=== PATIENT | female | born 1945 | race Caucasian/White ===

== ENCOUNTER 2023-11-18 21:26 | Inpatient (IN) ==
[2023-11-18 22:17] LABS: Basophils # (auto) 0.05 K/uL (0.00-0.20); Basophils % (auto) 0.6 %; Eosinophils # (auto) 0.31 K/uL (0.00-0.50); Eosinophils % (auto) 3.9 %; Hematocrit (blood only) 43.3 % (37.0-47.0); Hemoglobin 14.5 g/dl (12.0-16.0); Immature Granulocytes # (auto) 0.02 K/uL (0.01-0.20); Immature Granulocytes % (auto) 0.3 %; Lymphocytes # (auto) 1.93 K/uL (1.20-3.40); Lymphocytes % (auto) 24.3 %; Mean Corpuscular Hemoglobin 31.2 pg (25.0-34.0); Mean Corpuscular Hgb Conc 33.5 g/dL (32.0-36.0); Mean Corpuscular Volume 93.1 fL (80.0-100.0); Mean Platelet Volume 10.3 fL (9.4-12.4); Monocytes # (auto) 0.73 K/uL (0.11-0.59); Monocytes % (auto) 9.2 %; Neutrophils # (auto) 4.91 K/uL (1.40-6.50); Neutrophils % (auto) 61.7 %; Platelet Count 161 K/uL (130-400); RDW Coefficient of Variation 13.3 % (11.5-14.5); RDW Standard Deviation 45.2 fL (36.4-46.3); Red Blood Count 4.65 M/uL (4.20-5.40); White Blood Count 7.95 K/ul (4.8-10.8)
[2023-11-18 22:28] LABS: BUN Creatinine Ratio 20.7 (10-20); Calcium 8.9 mg/dl (8.6-10.3); Creatinine Clr Calc Pharmacy 53.7 ml/min; Potassium 3.7 mmol/L (3.5-5.1)
--- NOTE | 2023-11-18 22:39 | Emergency Department Note ---
Impression & Plan Closed right hip fracture ED Provider Note NAME: SIMA JJ AGE: 78 SEX: F : 1945 ARRIVES VIA: Ambulance INFORMANT: Patient, ED PROVIDER(S): Emily Mendoza MD CHIEF COMPLAINT: Hip pain after fall HPI: This is a 78-year-old female presenting for a fall and hip pain. Patient notes that she was in the bathtub. She was getting out and put 1 foot on the bathroom mat. When she attempted to twist her body this bathroom at slipped and she hit her right hip against the ground. She notes that immediately after the injury she is unable to walk on it due to pain. She takes no blood thinners, did not hit her head. Her only blood provide hurts is her current right hip. ROS: See above HPI for pertinent positives & negatives. A total of 10 systems reviewed and were otherwise negative. PHYSICAL EXAMINATION: General: resting comfortably in no acute distress Head: Normocephalic and atraumatic Eyes: Normal inspection, extraocular muscles intact Ear, nose, throat: Normal external exam Neck: Normal range of motion Respiratory: lungs clear to auscultation bilaterally Cardiovascular: Regular rate/rhythm, no murmur GI: soft, nontender, no guarding or rebound Extremities: Right hip tenderness to palpation, held in current flexion, 2+ pulses Neuro: The patient awake and alert, appropriately conversive, no focal deficits, symmetric faces Skin: Warm, dry, and intact MEDICAL DECISION MAKING: This is a 78-year-old female sent for hip pain after a fall. Suspect hip fracture based on patient's current clinical presentation. Otherwise low concern for acute pelvic fracture. Hip x-ray independent read by me shows a right trochanteric hip fracture, nondisplaced -Will get basic screening blood work, EKG and chest x-ray as patient will be admitted. -Blood reviewed without significant leukocytosis, anemia or electrolyte disturbances. -Chest x-ray as independently interpreted by me reveals cardiomegaly, no focal opacity, no pneumothorax -ECG independently interpreted by me with sinus bradycardia, rate of 59, normal axis, normal ND, incomplete right bundle branch block, normal QTc,i no ST segment elevations consistent with STEMI criteria Differential diagnosis: Hip fracture pelvic fracture contusion, muscle strain/sprain ER treatment provided: See below Diagnostics interpreted by me: ECG: See above Cardiac Monitoring: An order was placed for continuous cardiac monitoring. The monitor shows a rate of 59 with sinus rhythm. Laboratory studies:As stated above and show below.] Imaging studies: See below. 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 Beliefs That Will Affect Care: None Current Living Situation: Spouse Current Living Situation Comment: lives with in NH, home has stairs to entrance and in home Feels Safe at Home: Yes Assistive Devices: Bedside Commode and Walker Allergies Allergies Allergy/AdvReac Type Severity Reaction Status Date / Time bee venom protein (honey bee) Allergy Severe Hives Verified 11/18/23 23:17 Home Meds Home Medications Medication Instructions Recorded Confirmed levothyroxine 50 mcg tablet 50 mcg PO QAM 11/18/23 11/18/23 simvastatin 20 mg tablet 20 mg PO HS 11/18/23 11/18/23 Results & Data (ED) Vital Signs Vital Signs - 24 hr 11/18/23 21:38 11/18/23 21:41 11/18/23 21:41 Temperature 36.7 C 36.7 C Temperature Source Oral Oral Pulse Rate 66 64 Pulse Rate [Apical] 64 Respiratory Rate 16 16 Blood Pressure 159/114 H Blood Pressure [Right Arm] 159/114 H Blood Pressure Mean 129 Blood Pressure Mean [Right Arm] 129 Pulse Oximetry 99 98 Oxygen Delivery Method Room Air Room Air Sepsis Recent Fever Within 48 Hours No Sepsis New/Unexplained Change in Mental Status No Sepsis Action Taken by Nursing No Action Required Laboratory Data 11/20/23 07:29 11/20/23 07:29 Lab Results 11/18/23 Range/Units 21:37 WBC 7.95 (4.8-10.8) K/ul RBC 4.65 (4.20-5.40) M/uL Hgb 14.5 (12.0-16.0) g/dl Hct 43.3 (37.0-47.0) % MCV 93.1 (80.0-100.0) fL MCH 31.2 (25.0-34.0) pg MCHC 33.5 (32.0-36.0) g/dL RDW Std Deviation 45.2 (36.4-46.3) fL RDW Coeff of Erwin 13.3 (11.5-14.5) % Plt Count 161 (130-400) K/uL MPV 10.3 (9.4-12.4) fL Immature Gran % (Auto) 0.3 % Neut % (Auto) 61.7 % Lymph % (Auto) 24.3 % Mcdonough % (Auto) 9.2 % Eos % (Auto) 3.9 % Baso % (Auto) 0.6 % Neut # (Auto) 4.91 (1.40-6.50) K/uL Lymph # (Auto) 1.93 (1.20-3.40) K/uL Mcdonough # (Auto) 0.73 H (0.11-0.59) K/uL Eos # (Auto) 0.31 (0.00-0.50) K/uL Baso # (Auto) 0.05 (0.00-0.20) K/uL Immature Gran # (Auto) 0.02 (0.01-0.20) K/uL PT 10.3 (9.0-12.0) Seconds INR 0.9 (0.9-1.1) APTT 27 (21-31) Seconds PTT Ratio 1.0 Sodium 138 (136-145) mmol/L Potassium 3.7 (3.5-5.1) mmol/L Chloride 104 (98-107) mmol/L Carbon Dioxide 26 (21-32) mmol/L Anion Gap 8 (3-11) BUN 17 (6-23) mg/dl Creatinine 0.82 (0.6-1.2) mg/dl Est Cr Clr Drug Dosing 53.7 ml/min Est GFR ( Amer) 80.0 ml/min Est GFR (Non-Af Amer) 69.0 ml/min BUN/Creatinine Ratio 20.7 H (10-20) Glucose 144 H (70-99(Fasting)) mg/dl Calcium 8.9 (8.6-10.3) mg/dl Magnesium 2.0 (1.7-2.4) mg/dl Administered Medications Acetaminophen (Acetaminophen 325 Mg Tab) 650 mg PO Q4H PRN PRN Reason: Pain or Fever Stop: 12/20/23 09:11 Last Admin: 11/21/23 09:50 Dose: 650 mg Documented By: Admin: 11/21/23 04:53 Dose: 650 mg Documented By: Admin: 11/20/23 22:11 Dose: 650 mg Documented By: Admin: 11/20/23 14:04 Dose: 650 mg Documented By: Admin: 11/20/23 10:12 Dose: 650 mg Documented By: NIKO Apixaban (Apixaban 2.5 Mg Tab) 2.5 mg PO BID [facility] Stop: 01/01/24 08:59 Last Admin: 11/21/23 08:00 Dose: 2.5 mg Documented By: Admin: 11/20/23 20:37 Dose: 2.5 mg Documented By: Admin: 11/20/23 10:13 Dose: 2.5 mg Documented By: NIKO Levothyroxine Sodium (Levothyroxine Sodium 50 Mcg Tablet) 50 mcg PO DAILYBB [facility] Stop: 12/20/23 08:59 Last Admin: 11/21/23 04:54 Dose: 50 mcg Documented By: CAROLINE Ondansetron HCl (Ondansetron Inj 2 Mg/Ml 2 Ml Vial) 4 mg IV Q6H PRN PRN Reason: Nausea Stop: 12/19/23 01:14 Last Admin: 11/19/23 17:23 Dose: 4 mg Documented By: LESIA Simvastatin (Simvastatin 20 Mg Tab) 20 mg PO HS [facility] Stop: 12/19/23 20:59 Last Admin: 11/20/23 20:37 Dose: 20 mg Documented By: Admin: 11/19/23 20:30 Dose: 20 mg Documented By: CAROLINE Tramadol HCl (Tramadol Hcl 50 Mg Tablet) 50 mg PO Q4H PRN PRN Reason: MODERATE Pain Stop: 12/20/23 16:56 Last Admin: 11/21/23 01:40 Dose: 50 mg Documented By: Admin: 11/20/23 17:05 Dose: 50 mg Documented By: NIKO Discontinued Medications Aspirin (Aspirin 81 Mg Ectab) 81 mg PO QAM [facility] Stop: 12/20/23 08:59 Last Admin: 11/20/23 08:36 Dose: 81 mg Documented By: NIKO Bupivacaine HCl/Epinephrine Bitart (Bupivacaine/Epinephrine 0.25% 1:200,000 30 Ml Vial) Confirm Administered Dose 30 ml .ROUTE .STK-MED ONE Stop: 11/19/23 13:25 Last Admin: 11/19/23 15:45 Dose: 30 ml Documented By: BTR Hydromorphone HCl (Hydromorphone Inj 0.5 Mg/0.5 Ml Syr) 0.5 mg IV NOW STA Stop: 11/18/23 22:31 Last Admin: 11/18/23 22:48 Dose: 0.5 mg Documented By: CIERA Hydromorphone HCl (Hydromorphone Inj 0.5 Mg/0.5 Ml Syr) 0.5 mg IV Q3H PRN PRN Reason: Pain (6,7,8,9,10) Stop: 12/03/23 01:14 Last Admin: 11/19/23 07:49 Dose: 0.5 mg Documented By: JAIME Acetaminophen (Ofirmev) 1,000 mg in 100 mls @ 400 mls/hr IV Q8H PRN PRN Reason: Pain or Fever Stop: 11/21/23 23:39 Last Infusion: 11/20/23 05:02 Dose: Infused Documented By: Admin: 11/20/23 04:21 Dose: 400 mls/hr Documented By: Infusion: 11/19/23 20:10 Dose: Infused Documented By: Admin: 11/19/23 19:46 Dose: 400 mls/hr Documented By: Infusion: 11/19/23 10:57 Dose: Infused Documented By: Admin: 11/19/23 10:40 Dose: 400 mls/hr Documented By: Infusion: 11/19/23 01:53 Dose: Infused Documented By: Admin: 11/19/23 01:38 Dose: 400 mls/hr Documented By: CAROLINE Cefazolin Sodium (Ancef 2000mg) 2,000 mg in 15 mls @ 3.75 mls/min IV PREOP [facility]MI; Protocol Stop: 11/20/23 05:59 Last Admin: 11/19/23 14:34 Dose: 3.75 mls/min Documented By: CHARIS Lactated Ringer's (Lr) 1,000 mls @ 80 mls/hr IV .[id number] [facility]MI Stop: 12/19/23 01:14 Last Infusion: 11/20/23 09:25 Dose: Infused Documented By: Infusion: 11/20/23 05:02 Dose: 80 mls/hr Documented By: Infusion: 11/20/23 05:01 Dose: 0 mls/hr Documented By: Admin: 11/20/23 04:20 Dose: 80 mls/hr Documented By: Infusion: 11/20/23 04:20 Dose: Infused Documented By: Admin: 11/19/23 17:31 Dose: 80 mls/hr Documented By: Infusion: 11/19/23 17:31 Dose: Infused Documented By: Admin: 11/19/23 16:21 Dose: Not Given Documented By: Infusion: 11/19/23 12:48 Dose: 0 mls/hr Documented By: Admin: 11/19/23 01:35 Dose: 80 mls/hr Documented By: CAROLINE Pantoprazole Sodium 40 mg/ (Syringe) 10 mls @ 5 mls/min IV DAILY@1100 [facility] Stop: 12/19/23 10:59 Last Admin: 11/19/23 10:40 Dose: 5 mls/min Documented By: JAIME Tranexamic Acid (Tranexamic Acid / 0.7% Nacl) 1,000 mg in 100 mls @ 600 mls/hr IV ONE ONE Stop: 11/19/23 15:54 Last Infusion: 11/19/23 17:20 Dose: Infused Documented By: Admin: 11/19/23 15:15 Dose: 600 mls/hr Documented By: CHARIS Cefazolin Sodium (Ancef 2000mg) 2,000 mg in 15 mls @ 3.75 mls/min IV Q8H [facility]; Protocol Stop: 11/20/23 06:03 Last Admin: 11/20/23 05:45 Dose: 3.75 mls/min Documented By: Admin: 11/19/23 20:30 Dose: 3.75 mls/min Documented By: CAROLINE Sodium Chloride (Nss) 1,000 mls @ 999 mls/hr IV .Q1H1M ONE Stop: 11/20/23 15:49 Last Infusion: 11/20/23 16:55 Dose: Infused Documented By: Infusion: 11/20/23 16:21 Dose: Infused Documented By: Admin: 11/20/23 15:14 Dose: 999 mls/hr Documented By: NIKO Levothyroxine Sodium (Levothyroxine Sodium 50 Mcg Tablet) 50 mcg PO NOW ONE Stop: 11/20/23 09:01 Last Admin: 11/20/23 09:16 Dose: 50 mcg Documented By: NIKO Oxycodone HCl (Oxycodone Hcl Ir 5 Mg Tab (Immediate Release)) 5 mg PO Q4H PRN PRN Reason: Pain Stop: 12/03/23 17:21 Last Admin: 11/20/23 07:55 Dose: 5 mg Documented By: Admin: 11/20/23 02:24 Dose: 5 mg Documented By: Admin: 11/19/23 20:32 Dose: 5 mg Documented By: [facility] Discharge Plan Visit Data Chief Complaint: Hip Pain Stated Complaint: Fall, Hip Pain ED Provider: Emily Mendoza Discharge Problem: Closed right hip fracture Patient Disposition: Admitted As Inpatient Discharge Instructions Interventions: ED Discharge Assessment Last Done: 11/19/23 00:55
[2023-11-18] MEDS: HYDROmorphone INJ 0.5 MG/0.5 ML SYR IV STA (22:48)
--- NOTE | 2023-11-18 23:46 | History & Physical Report ---
Date of Service November 18, 2023 Assessment & Plan (1) Closed right hip fracture: (2) Hypothyroidism: (3) Incomplete right bundle branch block: (4) Hyperlipidemia: (5) History of repair of left hip joint: Plan Closed right hip fracture- N.p.o. Acetaminophen 1 g IV every 8 hours as needed for mild pain or fever Dilaudid 0.25 mg IV every 3 hours as needed for moderate pain Dilaudid 0.5 mg IV every 3 hours as needed for severe pain Zofran 4 mg IV every 6 hours as needed Pantoprazole 40 mg IV daily LR at 80 mL/h History of previous left hip repair 07/06 Patient lives out of state in [place], and was here for graduation ceremony Consult orthopedic surgery Incomplete right bundle branch block- EKG with sinus bradycardia at rate 59, with incomplete RBBB No personal history of CAD, and patient is very physically active Hyperglycemia- Glucose 144 on admission No history of diabetes Repeat laboratories in a.m., if still elevated at that time, will place on Accu- Cheks and SSI Hypothyroidism- Resume levothyroxine post procedure Hyperlipidemia- Resume simvastatin postprocedure History of Present Illness Chief Complaint: The patient presents to the emergency department after developing immediate righ t hip pain after stepping out of the bathtub, onto a floor mat which slid, and she landed on her right hip. She denies any other injury, in particular, did not hit her head. Primary Care Provider: LONG GASTELUM The patient is a 78-year-old female visiting for a graduation ceremony, with a past medical history including hypothyroidism, hypercholesterolemia and history of left hip surgery, who presents to the emergency department after a slip and fall on a bath mat, developing severe right hip pain, with x-ray revealing a closed right hip fracture. Allergies Allergy/AdvReac Type Severity Reaction Status Date / Time bee venom protein (honey bee) Allergy Severe Hives Verified 11/18/23 23:17 Home Medications Medication Instructions Recorded Confirmed Type levothyroxine 50 mcg tablet 50 mcg PO QAM 11/18/23 11/18/23 History simvastatin 20 mg tablet 20 mg PO HS 11/18/23 11/18/23 History Past Med/Surg History Medical History (Updated 11/18/23 @ 23:55 by Denny Pa MD) Family history of heart disease 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 Hyperlipidemia Hypothyroidism Surgical History (Updated 11/18/23 @ 23:54 by Denny Pa MD) History of D&C History of repair of left hip joint Social History Smoking Status: Unknown if ever smoked Feels Safe at Home: Yes Review of Systems Review of Systems: The patient denies chest pain, palpitations, shortness of breath, dyspnea on exertion, cough, lower extremity swelling, sore throat, fevers, chills, sweats, weight change, fatigue, nausea, vomiting, diarrhea , constipation, abdominal pain, pelvic pain, blood in urine or stool, dysuria, urinary frequency or urgency, lightheadedness, dizziness, headache, memory loss, loss of consciousness, rash, abnormal bruising or bleeding, focal or generalized weakness, numbness or tingling in arms or left leg, generalized arthralgias or myalgias, back or neck pain, or night sweats. The review of systems is otherwise negative other than for that already noted above, and at least 10 systems have been reviewed. Physical Exam Physical Exam: The patient is awake, alert and oriented 3, well developed and well nourished, normocephalic and atraumatic, lying in bed and in no acute distress. HEENT--PERRL, EOMI, mucous membranes and oropharynx normal Neck--supple. No JVD. No bruits. Thyroid normal, trachea midline, no adenopathy. Heart--normal S1 and S2. No murmurs, rubs or gallops. Lungs--clear bilaterally, no respiratory distress, no accessory muscle use. Abdomen--normal bowel sounds and soft. Nontender. Nondistended, no hernias or masses, no organomegaly. Extremities--no cyanosis or clubbing. No edema. There are good distal pulses b/l. Dermatologic--normal skin turgor, normal color, no abnormal lymph nodes, no rash. Neurologic--cranial nerves II through XII grossly intact. Rheumatologic--limited exam due to right hip pain Psychiatric--normal affect. Results & Data Results & Data Vital Signs (Past 12 Hours) Vital Signs Temp Pulse Pulse Resp BP BP Pulse Ox 11/18/23 23:33 64 16 164/85 H 92 11/18/23 21:41 36.7 C 64 16 159/114 H 98 11/18/23 21:41 36.7 C 64 16 159/114 H 99 11/18/23 21:38 66 O2 Del Method 11/18/23 23:33 11/18/23 21:41 Room Air 11/18/23 21:41 Room Air 11/18/23 21:38 Laboratory Results Laboratory Results WBC 7.95 K/ul (4.8-10.8) 11/18/23 21:37 RBC 4.65 M/uL (4.20-5.40) 11/18/23 21:37 Hgb 14.5 g/dl (12.0-16.0) 11/18/23 21:37 Hct 43.3 % (37.0-47.0) 11/18/23 21:37 MCV 93.1 fL (80.0-100.0) 11/18/23 21:37 MCH 31.2 pg (25.0-34.0) 11/18/23 21:37 MCHC 33.5 g/dL (32.0-36.0) 11/18/23 21:37 RDW Std Deviation 45.2 fL (36.4-46.3) 11/18/23 21:37 RDW Coeff of Erwin 13.3 % (11.5-14.5) 11/18/23 21:37 Plt Count 161 K/uL (130-400) 11/18/23 21:37 MPV 10.3 fL (9.4-12.4) 11/18/23 21:37 Immature Gran % (Auto) 0.3 % 11/18/23 21:37 Neut % (Auto) 61.7 % 11/18/23 21:37 Lymph % (Auto) 24.3 % 11/18/23 21:37 Monona % (Auto) 9.2 % 11/18/23 21:37 Eos % (Auto) 3.9 % 11/18/23 21:37 Baso % (Auto) 0.6 % 11/18/23 21:37 Neut # (Auto) 4.91 K/uL (1.40-6.50) 11/18/23 21:37 Lymph # (Auto) 1.93 K/uL (1.20-3.40) 11/18/23 21:37 Monona # (Auto) 0.73 K/uL (0.11-0.59) H 11/18/23 21:37 Eos # (Auto) 0.31 K/uL (0.00-0.50) 11/18/23 21:37 Baso # (Auto) 0.05 K/uL (0.00-0.20) 11/18/23 21:37 Immature Gran # (Auto) 0.02 K/uL (0.01-0.20) 11/18/23 21:37 Sodium 138 mmol/L (136-145) 11/18/23 21:37 Potassium 3.7 mmol/L (3.5-5.1) 11/18/23 21:37 Chloride 104 mmol/L (98-107) 11/18/23 21:37 Carbon Dioxide 26 mmol/L (21-32) 11/18/23 21:37 Anion Gap 8 (3-11) 11/18/23 21:37 BUN 17 mg/dl (6-23) 11/18/23 21:37 Creatinine 0.82 mg/dl (0.6-1.2) 11/18/23 21:37 Est Cr Clr Drug Dosing 53.7 ml/min 11/18/23 21:37 Est GFR ( Amer) 80.0 ml/min 11/18/23 21:37 Est GFR (Non-Af Amer) 69.0 ml/min 11/18/23 21:37 BUN/Creatinine Ratio 20.7 (10-20) H 11/18/23 21:37 Glucose 144 mg/dl (70-99(Fasting)) H 11/18/23 21:37 Calcium 8.9 mg/dl (8.6-10.3) 11/18/23 21:37 Code Status & VTE Plan Code Status Full code VTE Prophylaxis Plan VTE Prophylaxis will be ordered: Yes PG Care Time/CCT Total # of Minutes Spent Total Time Spent with Patient: Total time spent is greater than 50% in coordination of care (as documented) at patient's floor/unit and/or counseling patient: Coding Level of Care Code 51659 INT INP/OBS CARE 3/75MIN Diagnoses Closed right hip fracture S72.001A Hypothyroidism E03.9 Incomplete right bundle branch block I45.10 Hyperlipidemia E78.5 History of repair of left hip joint Z98.890
[2023-11-18 23:59] LABS: INR 0.9 (0.9-1.1); Partial Thromboplastin Time 27 Seconds (21-31); Prothrombin Time 10.3 Seconds (9.0-12.0)
[2023-11-19] MEDS ORDERED: NALOXONE HCL 0.4 MG/1 ML VIAL/CARP IV PRN (01:15)
[2023-11-19] MEDS ORDERED: bisacodyL 10 MG SUPP PR PRN (01:15)
[2023-11-19] MEDS ORDERED: HYDROmorphone INJ 0.5 MG/0.5 ML SYR IV PRN (01:15)
[2023-11-19] MEDS ORDERED: MAGNESIUM HYDROXIDE SUSP 30 ML UDC PO PRN (01:15)
[2023-11-19] MEDS: LACTATED RINGER'S 1,000 ML IV SCH (01:35)
[2023-11-19] MEDS: ACETAMINOPHEN 1,000 MG/100 ML VIAL IV PRN (01:38)
--- NOTE | 2023-11-19 06:36 | Orthopedic Consultation ---
Date of Service November 19, 2023 Assessment & Plan (1) Closed right hip fracture: I discussed with her the diagnosis and treatment options. I am recommending intramedullary nail fixation of the right hip. She understands the risk, benefits, alternatives to the procedures elected to proceed. Questions were answered at bedside. Time was spent scribing the procedure and postop expectations. The decision was made for surgery. She is currently NPO. We plan to do the procedure later today. History of Present Illness Reason for Consultation: Nondisplaced right intertrochanteric hip fracture. Requesting Physician: . Attending Physician: Denny Pa MD Surekha is a pleasant 78-year-old female who is from the [facility]. She is a community ambulator without assistance. She was in town for a graduation. Unfortunately she slipped on a bath mat coming out of the bathtub. She injured her right hip. She came to the emergency room and radiographs demonstrated a minimally displaced right intertrochanteric hip fracture. Orthopedics was consulted to evaluate and treat.. Allergies Allergy/AdvReac Type Severity Reaction Status Date / Time bee venom protein (honey bee) Allergy Severe Hives Verified 11/18/23 23:17 Home Medications Medication Instructions Recorded Confirmed Type levothyroxine 50 mcg tablet 50 mcg PO QAM 11/18/23 11/18/23 History simvastatin 20 mg tablet 20 mg PO HS 11/18/23 11/18/23 History Past Med/Surg History Medical History Family history of heart disease 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 Hyperlipidemia Hypothyroidism Surgical History History of D&C History of repair of left hip joint Social History Smoking Status: Former smoker Hx Alcohol Use: No Hx Substance Use: Yes Last Used Substance: Hours (ago) Last Used Substance Oth er:: last night Preferred Language: Kittitian Communication Ability: Effective Land Measurer Required: No Beliefs That Will Affect Care: None Current Living Situation: Spouse Current Living Situation Comment: lives with in [place], home has stairs to entrance and in home Feels Safe at Home: Yes Assistive Devices: Glasses Review of Systems All systems reviewed & are unremarkable except as noted in HPI & below. Physical Exam On physical examination the right hip, her right leg is externally rotated. She has pain with logroll of her right hip.. Constitutional WD/WN, vitals as above Eyes PERRL, conjunctivae normal, anicteric sclerae ENMT external ear and nose normal, oropharynx normal Neck trachea midline, no thyromegaly Respiratory normal respiratory effort Cardiovascular RRR, no murmur, no edema Gastrointestinal (Abdomen) normal bowel sounds, soft, nontender, no hepatosplenomegaly Psychiatric A+Ox3, euthymic affect Results & Data Results & Data Laboratory Results . Diagnostic Findings X-rays of the right hip do show a minimally displaced right intertrochanteric hip fracture.. PG Care Time/CCT Total # of Minutes Spent Total Time Spent with Patient: Total time spent is greater than 50% in coordination of care (as documented) at patient's floor/unit and/or counseling patient: Coding Level of Care Code 39513 IN/OBS CONSULT LVL 4,60M (57 - DECISION FOR SURGERY) Diagnoses Closed right hip fracture S72.001A
[2023-11-19 07:25] LABS: Albumin Level 3.7 gm/dl (3.4-5.0); BUN Creatinine Ratio 21.4 (10-20); Calcium 8.5 mg/dl (8.6-10.3); Est GFR (African American) 96.9 ml/min; Est GFR (Non-African American) 83.6 ml/min; Phosphorus 4.2 mg/dl (2.5-4.9); Potassium 3.9 mmol/L (3.5-5.1)
--- NOTE | 2023-11-19 07:37 | XRay Report ---
XR chest 1V portable HISTORY: Right hip fracture. Preop. COMPARISON: None. FINDINGS: No pneumothorax. No pleural effusions. The cardiac silhouette is mildly enlarged. There is mild diffuse interstitial thickening. This could be chronic or represent mild congestive change. No f ocal lung consolidations to suggest a pneumonia. IMPRESSION: Cardiomegaly with mild diffuse interstitial thickening. This could be chronic or represent mild conge stive change. ACT 112: Negative or not required by law. Electronically signed by: Maurizio Garcia M.D. 11/19/2023 7:36 AM
--- NOTE | 2023-11-19 07:37 | XRay Report ---
XR hip RT 2V w pelvis CLINICAL HISTORY: Hip injury COMPARISON STUDY: None. FINDINGS: Nondisplaced intertrochanteric fracture within the proximal right femur. No dislocation. Th e visualized pelvic bones are intact. Doppler changes within the proximal left femur status post inte rnal fixation. The hardware appears intact. IMPRESSION: Nondisplaced intertrochanteric fracture within the proximal right femur. ACT 112: Negative or not required by law. Electronically signed by: Maurizio Garcia M.D. 11/19/2023 7:35 AM
[2023-11-19 07:39] LABS: Basophils # (auto) 0.05 K/uL (0.00-0.20); Basophils % (auto) 0.5 %; Eosinophils # (auto) 0.13 K/uL (0.00-0.50); Eosinophils % (auto) 1.3 %; Hematocrit (blood only) 40.6 % (37.0-47.0); Hemoglobin 13.5 g/dl (12.0-16.0); Immature Granulocytes # (auto) 0.05 K/uL (0.01-0.20); Immature Granulocytes % (auto) 0.5 %; Lymphocytes # (auto) 1.52 K/uL (1.20-3.40); Lymphocytes % (auto) 15.6 %; Mean Corpuscular Hemoglobin 31.2 pg (25.0-34.0); Mean Corpuscular Hgb Conc 33.3 g/dL (32.0-36.0); Mean Corpuscular Volume 93.8 fL (80.0-100.0); Mean Platelet Volume 10.4 fL (9.4-12.4); Monocytes # (auto) 1.08 K/uL (0.11-0.59); Monocytes % (auto) 11.1 %; Neutrophils # (auto) 6.92 K/uL (1.40-6.50); Platelet Count 149 K/uL (130-400); RDW Coefficient of Variation 13.3 % (11.5-14.5); Red Blood Count 4.33 M/uL (4.20-5.40); White Blood Count 9.75 K/ul (4.8-10.8)
[2023-11-19] MEDS: HYDROmorphone INJ 0.5 MG/0.5 ML SYR IV PRN (07:49)
--- NOTE | 2023-11-19 10:21 | Hospitalist Progress Note ---
Date of Service November 19, 2023 Assessment & Plan (1) Closed right hip fracture: Plan: Patient lives out of state in [place], and was here for graduation ceremony, and slipped getting out the shower. Hx of left hip fracture 1.5 years ago after mechanical fall. LR at 80 ml/hr while NPO Pantoprazole 40mg IV daily Consult orthopedic surgery - Plan for OR today, 5/6 Pain control - IV tylenol and Dilaudid (2) Hypothyroidism: Plan: Continue Synthroid (3) Hyperlipidemia: Plan: Continue statin (4) History of repair of left hip joint: Plan Dispo: continued inpatient stay, OR today DVT proh: SCDs preoperatively Family updated at bedside Admission and Anticipated Discharge Date Admission Date: November 18, 2023 Subjective Patient resting in bed, present at bedside. Mechanical fall, no prodromal symptoms. Pain well controlled while not moving. Currently NPO, plan for OR today. Able to walk a block or flight of stairs without issue. Denies hx of cardiac problems Review of Systems Review of Systems: All systems reviewed & are unremarkable except as noted in Subjective Physical Exam Physical Exam: General: NAD, VS as above Resp: normal respiratory effort, lungs clear to auscultation CV: RRR, no murmur, Abd: non tender, no hepatosplenomegaly Extremities: able to wiggle toes, bilaterally Neuro: A&O x3, Results & Data Results & Data Vital Signs (Past 12 Hours) Vital Signs Temp Pulse Pulse Resp BP BP Pulse Ox 11/19/23 07:13 36.5 C 64 16 136/83 96 11/19/23 05:43 36.7 C 72 12 112/67 98 11/19/23 01:18 36.6 C 65 14 142/88 H 98 11/19/23 00:55 57 L 18 142/79 H 100 11/18/23 23:33 64 16 164/85 H 92 O2 Del Method 11/19/23 07:13 Room Air 11/19/23 05:43 Room Air 11/19/23 01:18 Room Air 11/19/23 00:55 Room Air 11/18/23 23:33 Laboratory Results CBC and chemistry reviewed PG Care Time/CCT Total # of Minutes Spent Total Time Spent with Patient: Total time spent is greater than 50% in coordination of care (as documented) at patient's floor/unit and/or counseling patient: Coding Level of Care Code 63259 SUB INP/OBS CARE MIN Diagnoses Closed right hip fracture S72.001A Hypothyroidism E03.9 Hyperlipidemia E78.5 History of repair of left hip joint Z98.890
[2023-11-19] MEDS: PANTOprazole 40 MG in SYRINGE 0 ML IV SCH (10:40)
--- NOTE | 2023-11-19 12:56 | History & Physical Bridge Note ---
Date of Service November 19, 2023 History & Physical Bridge Note I have examined the patient, reviewed the History & Physical and in the interval since the performance of the History & Physical I have noted the following changes of clinical significance: no changes noted
[2023-11-19] MEDS ORDERED: ATROPINE SULFATE 0.1 MG/ML 10ML SYR IV PRN (13:31)
[2023-11-19] MEDS ORDERED: ePHEDrine sulfate 50 MG/ML AMP IV PRN (13:31)
[2023-11-19] MEDS ORDERED: fentaNYL citrate PF 100 MCG/2 ML VIAL IV PRN (13:31)
[2023-11-19] MEDS ORDERED: ONDANSETRON INJ 2 MG/ML 2 ML VIAL IV PRN (13:31)
--- NOTE | 2023-11-19 13:32 | Anesthesiology Consultation ---
Date of Service November 19, 2023 Assessment & Plan (1) Encounter for pre-operative examination: Chart Review Chart Review: Acceptable Risk for Surgery and Patient NOT seen in Pre Admission Testing Consults Requested none History Surgery Operation Date: 11/19/23 07:00 Proposed Procedures p Right Short IM Nail - Misha Saavedra DO Height/Weight Height: 5 ft 3 in Weight: 67.222 kg Allergies Allergy/AdvReac Type Severity Reaction Status Date / Time bee venom protein (honey bee) Allergy Severe Hives Verified 11/18/23 23:17 Medications Home Medications Medication Instructions Recorded Confirmed Last Taken levothyroxine 50 mcg tablet 50 mcg PO QAM 11/18/23 11/18/23 11/18/23 simvastatin 20 mg tablet 20 mg PO HS 11/18/23 11/18/23 11/17/23 Active Medications Generic Name Dose Route Start Last Admin Trade Name Freq PRN Reason Stop Dose Admin Hydromorphone HCl 0.5 mg 11/19/23 01:15 11/19/23 07:49 Hydromorphone Inj 0.5 Mg/0.5 Ml Syr IV 12/03/23 01:14 0.5 mg Q3H PRN Administration Pain (6,7,8,9,10) Acetaminophen 1,000 mg in 100 mls @ 400 mls/hr 11/18/23 23:40 11/19/23 10:57 Ofirmev IV 11/21/23 23:39 Infused Q8H PRN Infusion Pain or Fever Lactated Ringer's 1,000 mls @ 80 mls/hr 11/19/23 01:15 11/19/23 01:35 Lr IV 12/19/23 01:14 80 mls/hr .[id number] SAMMI Administration Pantoprazole Sodium 40 mg/ 10 mls @ 5 mls/min 11/19/23 11:00 11/19/23 10:40 Syringe IV 12/19/23 10:59 5 mls/min DAILY@1100 SAMMI Administration NPO Date Last Intake of Fluids: 11/18/23 Time Last Intake of Fluids: 21:00 Date Last Intake of Solids: 11/18/23 Time Last Intake of Solids: 20:00 Past Medical History Medical History (Updated 11/19/23 @ 13:33 by Joni Garcia MD) Encounter for pre-operative examination Family history of heart disease 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 Hyperlipidemia Hypothyroidism Past Surgical History Surgical History History of D&C History of repair of left hip joint Social History Smoking Status: Former smoker Hx Alcohol Use: No Hx Substance Use: Yes substance use type: marijuana Last Used Substance: Hours (ago) Last Used Substance Other:: last night Physical Exam Vital Signs Last Vital Signs Temp 36.9 C 11/19/23 12:51 Pulse 70 11/19/23 12:51 Resp 20 11/19/23 12:51 BP 130/82 11/19/23 12:51 Pulse Ox 97 11/19/23 12:51 O2 Del Method Room Air 11/19/23 12:51 Testing Laboratory Results 11/19/23 06:41 11/19/23 06:41 PT 10.3 Seconds (9.0-12.0) 11/18/23 21:37 INR 0.9 (0.9-1.1) 11/18/23 21:37 APTT 27 Seconds (21-31) 11/18/23 21:37 Electrocardiogram Date: 11/18/23 Sinus bradycardia Incomplete right bundle branch block Borderline ECG No previous ECGs available. HR 59. Chest X-Ray Date: 11/18/23 XR chest 1V portable HISTORY: Right hip fracture. Preop. COMPARISON: None. FINDINGS: No pneumothorax. No pleural effusions. The cardiac silhouette is mildly enlarged. There is mild diffuse interstitial thickening. This could be chronic or represent mild congestive change. No focal lung consolidations to suggest a pneumonia. IMPRESSION: Cardiomegaly with mild diffuse interstitial thickening. This could be chronic or represent mild congestive change.
[2023-11-19] MEDS ORDERED: LIDOCAINE 2% 2 ML VIAL/AMP(20MG/ML) INFIL ONE (13:33)
[2023-11-19] MEDS ORDERED: MIDAZOLAM HCL 1 MG/ML 2ML VIAL ONE ×2 (13:33→13:34)
[2023-11-19] MEDS ORDERED: PROPOFOL IV EMULSION 10 MG/ML 20 ML VIAL IV ONE (13:33)
[2023-11-19] MEDS ORDERED: fentaNYL citrate PF 100 MCG/2 ML VIAL ONE (13:34)
[2023-11-19] MEDS ORDERED: BUPIVACAINE 0.5 % 5 MG/1 ML PF 10ML VIAL ONE (13:50)
[2023-11-19] MEDS: ceFAZolin 2000MG 2,000 MG/15 ML SYR IV SCH ×2 (14:34→20:30)
[2023-11-19] MEDS ORDERED: TRANEXAMIC ACID / 0.7% NACL 1000MG/100ML BAG IV ONE (15:13)
[2023-11-19] MEDS: TRANEXAMIC ACID / 0.7% NACL 1,000 MG/100 ML BAG IV ONE (15:15)
--- NOTE | 2023-11-19 15:21 | Electrocardiogram Report ---
Test Reason : Blood Pressure : / mmHG Vent. Rate : 059 BPM Atrial Rate : 059 BPM P-R Int : 116 ms QRS Dur : 092 ms QT Int : 406 ms P-R-T Axes : 054 065 056 degrees QTc Int : 401 ms Sinus bradycardia Incomplete right bundle branch block Borderline ECG No previous ECGs available Confirmed by Yobany Richardson ([id number]) on 11/19/2023 3:21:28 PM Referred By: REFERRED SELF Confirmed By:Yobany Richardson
[2023-11-19] MEDS: BUPIVACAINE/EPINEPHRINE 0.25% 1:200,000 30 ML VIAL ONE (15:45)
--- NOTE | 2023-11-19 15:52 | Operative Report ---
PG Post Operative Report Pre & Post Diagnosis Operation Date: 11/19/23 07:00 Pre-Op Diagnosis: Closed intertrochanteric right hip fracture Post-Op Diagnosis: Closed intertrochanteric right hip fracture I identified the patient and participated in the time-out.: Yes Procedure Operation Date: 11/19/23 07:00 Actual Procedures p Right Short Intramedullary Nail(Right) - Misha Saavedra DO Surgeon Misha Saavedra DO Clinic Director Misha Obrien PA-C Estimated Blood Loss 50 Findings Consistent with Post-Op Diagnosis Specimens None Description of Procedure On November 19, 2023 Surekha was brought down from her hospital room to the preoperative holding area. The operative extremity identified and signed. She was given a preoperative antibiotic. She was taken back to the operating room and given a spinal anesthetic. She was then transferred to the fracture table. The right leg was brought out to traction. Fluoroscopy was used to ensure anatomic reduction of the hip. The right hip was then prepped and draped in sterile fashion. A timeout was done. The patient and the operative extremity was properly identified. A longitudinal incision was made just superior to the greater trochanter. Dissection was taken down through the fascia. A guidepin was placed at the tip of the greater trochanter and advanced down the center of the femoral canal. Appropriate placement was checked on fluoroscopy. A 16 mm opening reamer was then used to open the canal. A Synthes 11 mm short TFN nail was then impacted into place. Appropriate placement was checked on fluoroscopy. A small lateral incision was made and a cannula was advanced to the lateral cortex. A guidepin was then placed into the center center position of the femoral head. The helical blade measured to be 80 mm. The lateral cortex was drilled. An 80 mm helical blade was then impacted into place. The plate was then statically locked. A single distal locking screw was then placed. Final fluoroscopic images showed anatomic alignment of the hardware and complete reduction of the fracture. The wounds were then irrigated. The deep fascia was closed with #1 Vicryl. Deep tissue was closed with 2-0 Vicryl skin was closed with 3-0 Vicryl and teresa. She was then placed in a soft dressing. She was then transferred to a hospital bed and taken to the postanesthesia care unit in stable condition. She tolerated the procedure well. Misha Obrien PA-C, was present for the entire procedure. He was critical for patient positioning, prepping, draping, retraction exposure, wound closure and application of sterile dressing. I attest to the content of the Intraoperative Record and any orders documented therein. Any exceptions are noted below.
--- NOTE | 2023-11-19 15:56 | Fluoroscopy Report ---
FL hip RT 2-3V CLINICAL HISTORY: RIGHT IM NAIL COMPARISON STUDY: None. FLUOROSCOPY TIME: 45 seconds FLUOROSCOPY IMAGES: 4 Ka,r: 8.2 mGy FINDINGS: Internal fixation of the proximal right femoral fracture with a proximal intramedullary stewart and interlocking femoral neck pin. The hardware appears intact. Alignment is near-anatomic. IMPRESSION: Fluoroscopic assistance as above. ACT 112: Negative or not required by law. Electronically signed by: Maurizio Garcia M.D. 11/19/2023 3:55 PM
[2023-11-19] MEDS ORDERED: PHENYLEPHRINE HCL 10 MG/ML VIAL ONE (16:05)
--- NOTE | 2023-11-19 16:32 | Anesthesiology Progress Note ---
Date of Service November 19, 2023 Anesthesia Post Procedure Vital Signs Vital Signs: Temp Pulse Pulse Pulse Resp BP BP 11/19/23 16:25 57 L 13 121/61 11/19/23 16:15 59 L 16 113/59 L 11/19/23 16:05 63 12 110/62 11/19/23 15:56 36.2 C L 66 11 L 102/59 L 11/19/23 12:51 36.9 C 70 20 130/82 11/19/23 07:13 36.5 C 64 16 136/83 11/19/23 05:43 36.7 C 72 12 112/67 11/19/23 01:18 36.6 C 65 14 142/88 H 11/19/23 00:55 57 L 18 142/79 H 11/18/23 23:33 64 16 164/85 H 11/18/23 21:41 36.7 C 64 16 159/114 H 11/18/23 21:41 36.7 C 64 16 159/114 H 11/18/23 21:38 66 Pulse Ox O2 Del Method 11/19/23 16:25 96 Room Air 11/19/23 16:15 94 Room Air 11/19/23 16:05 97 Room Air 11/19/23 15:56 98 Room Air 11/19/23 12:51 97 Room Air 11/19/23 07:13 96 Room Air 11/19/23 05:43 98 Room Air 11/19/23 01:18 98 Room Air 11/19/23 00:55 100 Room Air 11/18/23 23:33 92 11/18/23 21:41 98 Room Air 11/18/23 21:41 99 Room Air 11/18/23 21:38 Pain Intensity Right Hip: Pain Intensity: 2 Transfer of Care Handoff Completed per policy Notes Mental Status: alert / awake / arousable and participated in evaluation Patient Amnestic to Procedure: Yes Nausea / Vomiting: adequately controlled Pain: adequately controlled Airway Patency, RR, SpO2: stable & adequate BP & HR: stable & adequate Hydration State: stable & adequate Neuraxial Anesthesia: was administered and sensory block is resolving Anesthetic Complications: no major complications apparent and Pt Satisfied with anesthetic care
[2023-11-19] MEDS: ONDANSETRON INJ 2 MG/ML 2 ML VIAL IV PRN (17:23)
[2023-11-19] MEDS: SIMVASTATIN 20 MG TAB PO SCH (20:30)
[2023-11-19] MEDS: oxyCODONE HCL IR 5 MG TAB (IMMEDIATE RELEASE) PO PRN (20:32)
--- NOTE | 2023-11-20 06:59 | Orthopedic Progress Note ---
Date of Service November 20, 2023 Assessment & Plan (1) Closed right hip fracture: Overall she is doing as well as expected. She can be weightbearing as tolerated on the right hip. She will be seen by physical therapy today for ambulation and range of motion exercises. I recommend DVT prophylaxis with Eliquis 2.5 mg twice a day for 6 weeks. She is interested in returning to [place] for rehab on the right hip. She is orthopedically stable for discharge when medically ready. Full orthopedic discharge instructions were placed in the discharge summary. If you have any further questions please feel free to contact me or call me personally on my cell phone [phone]. Amy Irby was seen and examined at bedside this morning. Overall she is doing very well. She is not having much pain in the right hip. She has not been up and ambulating yet. She has no complaints.. Review of Systems All systems reviewed & are unremarkable except as noted in HPI & below. Physical Exam On physical examination the right hip, the dressing is clean and dry. She has active dorsiflexion plantarflexion of her right ankle.. Results & Data Results & Data Laboratory Results . Diagnostic Findings . PG Care Time/CCT Total # of Minutes Spent Total Time Spent with Patient: Total time spent is greater than 50% in coordination of care (as documented) at patient's floor/unit and/or counseling patient: Coding Level of Care Code 68295 Post Operative Follow-Up Diagnoses Closed right hip fracture S72.001A
[2023-11-20 08:21] LABS: Basophils # (auto) 0.04 K/uL (0.00-0.20); Basophils % (auto) 0.4 %; Eosinophils # (auto) 0.11 K/uL (0.00-0.50); Eosinophils % (auto) 1.1 %; Hematocrit (blood only) 37.8 % (37.0-47.0); Hemoglobin 12.9 g/dl (12.0-16.0); Immature Granulocytes # (auto) 0.17 K/uL (0.01-0.20); Immature Granulocytes % (auto) 1.7 %; Lymphocytes # (auto) 1.27 K/uL (1.20-3.40); Lymphocytes % (auto) 12.9 %; Mean Corpuscular Hemoglobin 31.5 pg (25.0-34.0); Mean Corpuscular Hgb Conc 34.1 g/dL (32.0-36.0); Mean Corpuscular Volume 92.4 fL (80.0-100.0); Mean Platelet Volume 10.7 fL (9.4-12.4); Monocytes # (auto) 1.07 K/uL (0.11-0.59); Monocytes % (auto) 10.9 %; Neutrophils # (auto) 7.16 K/uL (1.40-6.50); Platelet Count 142 K/uL (130-400); RDW Coefficient of Variation 13.3 % (11.5-14.5); RDW Standard Deviation 45.6 fL (36.4-46.3); Red Blood Count 4.09 M/uL (4.20-5.40); White Blood Count 9.82 K/ul (4.8-10.8)
[2023-11-20 08:36] LABS: BUN Creatinine Ratio 10.5 (10-20); Calcium 8.2 mg/dl (8.6-10.3); Creatinine Clr Calc Pharmacy 57.1 ml/min; Est GFR (African American) 87.7 ml/min; Est GFR (Non-African American) 75.7 ml/min
[2023-11-20] MEDS: ASPIRIN 81 MG ECTAB PO SCH (08:36)
[2023-11-20] MEDS ORDERED: LEVOTHYROXINE SODIUM 50 MCG TABLET PO SCH (09:00)
[2023-11-20] MEDS: LEVOTHYROXINE SODIUM 50 MCG TABLET PO SCH (09:15)
[2023-11-20] MEDS: LEVOTHYROXINE SODIUM 50 MCG TABLET PO ONE (09:16)
[2023-11-20] MEDS: ACETAMINOPHEN 325 MG TAB PO PRN (10:12)
[2023-11-20] MEDS: APIXABAN 2.5 MG TAB PO SCH (10:13)
[2023-11-20] MEDS: SODIUM CHLORIDE 0.9% 1,000 ML IV ONE (15:14)
--- NOTE | 2023-11-20 15:47 | XRay Report ---
XR hip RT min 2V CLINICAL HISTORY: Post-Operative implant position TECHNIQUE: 2 views of the right hip and single frontal view of the pelvis were obtained. Comparison: Comparison is made to pelvis radiograph 11/18/2023 FINDINGS: Patient is status post total hip arthroplasty with expected postsurgical changes including soft tissu e swelling and subcutaneous emphysema. IMPRESSION: Expected postoperative appearance status post placement of total hip arthroplasty. ACT 112: Negative or not required by law. Electronically signed by: Niko Sanchez M.D. 11/20/2023 3:45 PM
--- NOTE | 2023-11-20 16:53 | Hospitalist Progress Note ---
Date of Service November 20, 2023 Assessment & Plan (1) Closed right hip fracture: Plan: Patient lives out of state in [place], and was here for graduation ceremony, and slipped getting out the shower. Hx of left hip fracture 1.5 years ago after mechanical fall. Consult orthopedic surgery - S/p right short intramedullary Nail on 11/[address] oliveira - DVT proh: Eliquis 2.5 mg BID x 6 weeks (through 12/31) - WBAT PT/OT - patient unable to participated today x2 due to orthostatic hypotension --> 1L IVF bolus and encourage PO intake Pain control - IV tylenol, tramadol, and oxycodone (pt trying to avoid taking this) CM following - patient hopeful to return to [place] for home health (2) Hypothyroidism: Plan: Continue Synthroid (3) Hyperlipidemia: Plan: Continue statin (4) History of repair of left hip joint: Plan Dispo: continued inpatient stay, pending ability to participate in PT DVT proh: Eliquis Admission and Anticipated Discharge Date Admission Date: November 18, 2023 Supervising Physician Co-Signing Physician Notes Attending Attestation - Chart reviewed, care plan d/w FABIANO Garibay. I agree w/ the flannery components of her documentation. Mario Rae MD Subjective Patient seen this afternoon ~1430. patient feels okay at rest, but lightheaded and nausous with standing with both attempts to work with therapy reports appetite has been quite poor - encourage for family to bring snacks if something sounds good. Able to sit up in bed with out orthostatic symptoms. Review of Systems Review of Systems: All systems reviewed & are unremarkable except as noted in Subjective Physical Exam Physical Exam: General: NAD, VS as above HEENT: MM dry Resp: normal respiratory effort, lungs clear to auscultation CV: RRR, no murmur, Abd: non tender, no hepatosplenomegaly. Extremities: able to wiggle toes, bilaterally. right hip dressing c/d/i Neuro: A&O x3, Results & Data Results & Data Vital Signs (Past 12 Hours) Vital Signs Temp Pulse Resp BP Pulse Ox O2 Del Method 11/20/23 14:58 36.4 C L 65 16 137/74 92 Room Air 11/20/23 08:00 Room Air 11/20/23 07:37 36.7 C 85 16 143/68 H 97 Room Air Laboratory Results CBC and chemistry reviewed PG Care Time/CCT Total # of Minutes Spent Total Time Spent with Patient: Total time spent is greater than 50% in coordination of care (as documented) at patient's floor/unit and/or counseling patient: Coding Level of Care Code 26640 SUB INP/OBS CARE 2/35MIN Diagnoses Closed right hip fracture S72.001A Hypothyroidism E03.9 Hyperlipidemia E78.5 History of repair of left hip joint Z98.890
[2023-11-20] MEDS ORDERED: oxyCODONE HCL IR 5 MG TAB (IMMEDIATE RELEASE) PO PRN (16:57)
[2023-11-20] MEDS: traMADol HCL 50 MG TABLET PO PRN (17:05)
--- NOTE | 2023-11-21 16:07 | Hospitalist Progress Note ---
Date of Service November 21, 2023 Assessment & Plan (1) Closed right hip fracture: Plan: Patient lives out of state in [place], and was here for graduation ceremony, and slipped getting out the shower. Hx of left hip fracture 1.5 years ago after mechanical fall. Consult orthopedic surgery - S/p right short intramedullary Nail on 11/[address] oliveira - DVT proh: Eliquis 2.5 mg BID x 6 weeks (through 12/31) - WBAT PT/OT - planning for rehab Case management following - prefers facility, closer to home ([place]), accepted at [facility] Pain control - IV tylenol, tramadol (2) Hypothyroidism: Plan: Continue Synthroid (3) Hyperlipidemia: Plan: Continue statin (4) History of repair of left hip joint: Plan Dispo: continued inpatient stay, notified CM could discharge tomorrow if transportation arranged. DVT proh: Eliquis Admission and Anticipated Discharge Date Admission Date: November 18, 2023 Subjective Patient seen this afternoon physical therapy. States that she did get lightheaded and dizzy the first time she tried to stand however this improved. . Appetite has improved, is maintaining good p.o. hydration Is realizing that she needs rehab and cannot just go home does get a little dizzy after administration of tramadol, will plan to reduce the dose Revisited patient around 1600, she has been up to the bathroom 3 times since with minimal dizziness Review of Systems Review of Systems: All systems reviewed & are unremarkable except as noted in Subjective Physical Exam Physical Exam: General: NAD, VS as above HEENT: MM dry Resp: normal respiratory effort, lungs clear to auscultation CV: RRR, no murmur, Abd: non tender, no hepatosplenomegaly. Extremities: able to wiggle toes, bilaterally. right hip dressing c/d/i Neuro: A&O x3, Results & Data Results & Data Vital Signs (Past 12 Hours) Vital Signs Temp Pulse Resp BP Pulse Ox O2 Del Method 11/21/23 14:57 36.8 C 86 18 114/75 95 Room Air 11/21/23 11:53 110/68 11/21/23 11:01 111/70 11/21/23 11:01 105/61 11/21/23 11:01 116/70 11/21/23 11:00 132/87 11/21/23 11:00 84/48 L 11/21/23 10:58 125/76 11/21/23 09:59 93 11/21/23 07:21 36.5 C 73 16 122/80 93 Room Air PG Care Time/CCT Total # of Minutes Spent Total Time Spent with Patient: Total time spent is greater than 50% in coordination of care (as documented) at patient's floor/unit and/or counseling patient: Coding Level of Care Code 50374 SUB INP/OBS CARE 2/35MIN Diagnoses Closed right hip fracture S72.001A Hypothyroidism E03.9 Hyperlipidemia E78.5 History of repair of left hip joint Z98.890
[2023-11-21] MEDS: traMADol HCL 50 MG TABLET PO PRN (17:23)
[2023-11-22 08:33] LABS: Hematocrit (blood only) 35.2 % (37.0-47.0); Hemoglobin 11.6 g/dl (12.0-16.0); Mean Corpuscular Volume 94.1 fL (80.0-100.0); Mean Platelet Volume 10.4 fL (9.4-12.4); Platelet Count 145 K/uL (130-400); RDW Coefficient of Variation 13.6 % (11.5-14.5); RDW Standard Deviation 46.6 fL (36.4-46.3); Red Blood Count 3.74 M/uL (4.20-5.40); White Blood Count 11.07 K/ul (4.8-10.8)
[2023-11-22 08:57] LABS: BUN Creatinine Ratio 12.3 (10-20); Creatinine Clr Calc Pharmacy 66.7 ml/min; Est GFR (African American) 99.3 ml/min; Est GFR (Non-African American) 85.6 ml/min; Potassium 3.6 mmol/L (3.5-5.1)
[2023-11-22] MEDS: SODIUM CHLORIDE 0.9% 1,000 ML IV ONE (11:58)
--- NOTE | 2023-11-22 16:21 | Hospitalist Progress Note ---
Date of Service November 22, 2023 Assessment & Plan (1) Closed right hip fracture: Plan: Patient lives out of state in [place], and was here for graduation ceremony, and slipped getting out the shower. Hx of left hip fracture 1.5 years ago after mechanical fall. Consult orthopedic surgery - S/p right short intramedullary Nail on 11/[address] oliveira - DVT proh: Eliquis 2.5 mg BID x 6 weeks (through 12/31) - WBAT PT/OT - planning for rehab Case management following - prefer facility, closer to home ([place]), accepted at [facility] patient with orthostatic hypotensiongiven another liter of IV fluids today, overall symptoms improving Pain control - IV tylenol, tramadol (2) Hypothyroidism: Plan: Continue Synthroid (3) Hyperlipidemia: Plan: Continue statin (4) History of repair of left hip joint: Plan Dispo: continued inpatient stay, plan for discharge tomorrow DVT proh: Diana family updated at bedside Admission and Anticipated Discharge Date Admission Date: November 18, 2023 Subjective patient visited multiple times during the day. Did have an episode of orthostasis overnight. Has felt lightheaded and dizzy when ambulating in the room/to the bathroom, this continues to improve. does not feel like she is actually going to pass out or fall when she has the symptoms patient really wanted salty greasy food, had [employer] for lunch and felt much better after that. Patient is very anxious to go home/rehab/back to the [facility] Review of Systems Review of Systems: All systems reviewed & are unremarkable except as noted in Subjective Physical Exam Physical Exam: General: NAD, VS as above Resp: normal respiratory effort, lungs clear to auscultation CV: RRR, no murmur, Abd: non tender, no hepatosplenomegaly. Extremities: able to wiggle toes, bilaterally. right hip dressing with shadowing, RN aware will plan to change today Neuro: A&O x3, Results & Data Results & Data Vital Signs (Past 12 Hours) Vital Signs Temp Pulse Resp BP Pulse Ox O2 Del Method 11/22/23 14:40 37.3 C 90 16 111/73 96 Room Air 11/22/23 14:18 102/68 11/22/23 14:17 101/68 11/22/23 14:16 102 H 96/92 L 97 Room Air 11/22/23 14:06 105 H 89/60 L 98 Room Air 11/22/23 14:05 90 79/51 L 94 Room Air 11/22/23 14:05 98 H 106/63 96 Room Air 11/22/23 12:00 112/77 11/22/23 11:55 88/65 L 11/22/23 07:16 36.5 C 79 16 163/74 H 95 Room Air Laboratory Results CBC and chemistry reviewed PG Care Time/CCT Total # of Minutes Spent Total Time Spent with Patient: Total time spent is greater than 50% in coordination of care (as documented) at patient's floor/unit and/or counseling patient: Coding Level of Care Code 15463 SUB INP/OBS CARE 235MIN Diagnoses Closed right hip fracture S72.001A Hypothyroidism E03.9 Hyperlipidemia E78.5 History of repair of left hip joint Z98.890
--- NOTE | 2023-11-23 08:34 | Discharge Summary ---
Discharge Summary Date of Service November 23, 2023 Notes For Next Care Provider Patient admitted after mechanical fall resulting in right hip fracture. repaired by Dr. Oliveira on 11/18. Doing well postoperativel - with some orthostatic hypotension that has improved with fluids. - recommend vit D level, Dexa scan outpatient - if persisting ortho hypotension - cortisol level? midodrine? (although patient is improving day of discharge) Will need prompt ortho follow up locally if not choosing to return to [facility] ortho Medication Changes From Visit eliquis BID x 6 weeks (through 12/31) Admission HPI Per Admitting Provider The patient is a 78-year-old female visiting for a graduation ceremony, with a past medical history including hypothyroidism, hypercholesterolemia and history of left hip surgery, who presents to the emergency department after a slip and fall on a bath mat, developing severe right hip pain, with x-ray revealing a closed right hip fracture. Principal Dx & Hospital Course #1 = Principal Diagnosis (1) Closed right hip fracture: Patient lives out of state in [place], and was here for graduation ceremony, and slipped getting out the shower. Hx of left hip fracture 1.5 years ago after mechanical fall. Consult orthopedic surgery - S/p right short intramedullary Nail on 11/[address] oliveira - DVT proh: Eliquis 2.5 mg BID x 6 weeks (through 12/31) - [facility] PT/OT - planning for rehab Case management following - prefers facility, closer to home ([place]), accepted at [facility] patient with orthostatic hypotensiongiven 2L, overall symptoms and blood pressures improving Pain control - tylenol, tramadol Recommend outpatient DEXA scan, vit D levels Discharge to rehab in [place] today (2) Hypothyroidism: Continue Synthroid TSH not checked during admission (3) Hyperlipidemia: Continue statin (4) History of repair of left hip joint: Plan Dispo: discharge to rehab today family updated at bedside Discharge Exam General: NAD, VS as above Resp: normal respiratory effort, lungs clear to auscultation CV: RRR, no murmur, Extremities: Moves all extremities, right hip dressing with shadowing - RN will change prior to discharge Neuro: A&O x3, Skin: intact, no lesions noted Updated Medication List Medication Instructions Recorded Confirmed Type levothyroxine 50 mcg tablet 50 mcg PO QAM 11/18/23 11/18/23 History simvastatin 20 mg tablet 20 mg PO HS 11/18/23 11/18/23 History acetaminophen 325 mg tablet 650 mg (2 x 325 mg) PO Q4H PRN 11/23/23 Rx pain #30 tabs apixaban 2.5 mg tablet (Eliquis) 2.5 mg PO BID 40 days #80 tabs 11/23/23 Rx tramadol 50 mg tablet 25 - 50 mg (0.5 - 1 x 50 mg) PO 11/23/23 Rx Q4H PRN pain #1 tab Hospital Stay Data Procedures Performed Operation Date: 11/19/23 07:00 Actual Procedures p Right Short Intramedullary Nail(Right) - Misha Oliveira DO Diagnostic Imagining Performed Hip/Pelvis X-Ray 11/18/23 21:57 XR hip RT 2V w pelvis CLINICAL HISTORY: Hip injury COMPARISON STUDY: None. FINDINGS: Nondisplaced intertrochanteric fracture within the proximal right femur. No dislocation. The visualized pelvic bones are intact. Doppler changes within the proximal left femur status post internal fixation. The hardware appears intact. IMPRESSION: Nondisplaced intertrochanteric fracture within the proximal right femur. ACT 112: Negative or not required by law. Electronically signed by: Maurizio Garcia M.D. 11/19/2023 7:35 AM Chest X-Ray 11/18/23 22:57 XR chest 1V portable HISTORY: Right hip fracture. Preop. COMPARISON: None. FINDINGS: No pneumothorax. No pleural effusions. The cardiac silhouette is mildly enlarged. There is mild diffuse interstitial thickening. This could be chronic or represent mild congestive change. No focal lung consolidations to suggest a pneumonia. IMPRESSION: Cardiomegaly with mild diffuse interstitial thickening. This could be chronic or represent mild congestive change. ACT 112: Negative or not required by law. Electronically signed by: Maurizio Garcia M.D. 11/19/2023 7:36 AM Hip X-Ray 11/19/23 00:00 FL hip RT 2-3V CLINICAL HISTORY: RIGHT IM NAIL COMPARISON STUDY: None. FLUOROSCOPY TIME: 45 seconds FLUOROSCOPY IMAGES: 4 Ka,r: 8.2 mGy FINDINGS: Internal fixation of the proximal right femoral fracture with a proximal intramedullary stewart and interlocking femoral neck pin. The hardware appears intact. Alignment is near-anatomic. IMPRESSION: Fluoroscopic assistance as above. ACT 112: Negative or not required by law. Electronically signed by: Maurizio Garcia M.D. 11/19/2023 3:55 PM Hip X-Ray 11/19/23 17:22 XR hip RT min 2V CLINICAL HISTORY: Post-Operative implant position TECHNIQUE: 2 views of the right hip and single frontal view of the pelvis were obtained. Comparison: Comparison is made to pelvis radiograph 11/18/2023 FINDINGS: Patient is status post total hip arthroplasty with expected postsurgical changes including soft tissue swelling and subcutaneous emphysema. IMPRESSION: Expected postoperative appearance status post placement of total hip arthroplasty. ACT 112: Negative or not required by law. Electronically signed by: Niko Sanchez M.D. 11/20/2023 3:45 PM Pending Results Patient Have Any Pending Studies at Discharge: No Discharge Instructions Given to Patient (Per Discharging Provider) martha Zapata are hospitalized after a fall that resulted in a hip fracture. This was repaired in the OR by Dr. Oliveira on 11/19/2023. you have continued to make progress but will need rehab. This has been arranged for you. You will be on Eliquis for 6 weeks last day (01/01/2024). I have attached information about Eliquis below. we made no changes to your home medications. You should follow-up with your PCP within 1 week of discharge from rehab. We did not check your TSH while you were here. If you are choosing to follow-up with orthopedics in [place] you should see them in 2 to 3 weeks after surgery if not you can also be seen at [facility]. If you continue to have drops in your BP at rehab/at home - recommend continue follow up with your PCP - there are labs they can check (cortisol) and medications (midodrine) if needed. Would recommend outpatient DEXA scan and checking Vit D levels given your fracture. It was my pleasure taking care of you, good luck with your recovery and congrats to your grandson! Linda Garibay PA-C --------- Here are some guidelines about taking Eliquis: Eliquis may cause serious side effects, including: Increased risk of blood clots if you stop taking Eliquis. Do not stop taking Eliquis without talking to your doctor. Increased risk of bleeding. Eliquis can cause bleeding which can be serious and may lead to . This is because Eliquis is a blood thinner medicine (anticoagulant) that lowers blood clotting. During treatment with Eliquis you are likely to bruise more easily, and it may take longer for bleeding to stop. * If you ever cannot get bleeding to stop please report to the ER * If you have a bruise that is large/painful or swollen you should also be seen by a medical provider Call your doctor or get medical help right away if you or your child develop any of these signs or symptoms of bleeding: unexpected bleeding or bleeding that lasts a long time, such as: * nose bleeds that happen often * unusual bleeding from the gums * bleeding that is severe or you cannot control * red, pink or brown urine * bright red or black stools (looks like tar) * cough up blood or blood clots * vomit blood or your vomit looks like coffee grounds If you have a fall and hit your head, please come to the ER and get checked out. Being on a blood thinner increases your risk of brain bleeding with falls. Avoid high risk activities, such as: * standing on tall ladders * riding motorcyles * anything where you are high risk for falls or trauma Avoid taking NSAIDs (pain medication) while you are taking a blood thinner. This includes: * Ibuprofen, Aleve Advil, Naproxen. * If you are ever unsure you can ask your doctor or pharmacist. * Tylenol is SAFE to take. ----- For rehab - discharged with imporving orthostasis - tyelnol and prn ultram for pain control DVT proh elquis 2.5mg BID Total Time Total Time Spent Total Time Spent (In Minutes): Time spend day of discharge 35 minutes including direct patient care, medication reconciliation, documentation, review of labs and images, and coordination of care. Coding Level of Care Code 72625 INP/OBS DISCH >30 MIN Diagnoses Closed right hip fracture S72.001A Hypothyroidism E03.9 Hyperlipidemia E78.5 History of repair of left hip joint Z98.890
== END 2023-11-23 09:59 | DRG 482 ==
LOC: ED 21:26 → 3N 23:45 → SUATTDRO 23:45 → 3N 11-19 00:55